=== PATIENT | female | born 1965 | race Caucasian/White ===

== ENCOUNTER 2021-04-20 16:23 | Inpatient (IN) | payer BC ==
[~2021-04-20] VITALS: Ht 170.2 cm; Wt 89.4 kg
[~2021-04-20 16:23] MED LIST: CIPROFLOXACIN500 M1 PO; DOXYCYCLINE 10100 MG PO; LISINOPRIL10 MG PO; PYRIDIUM200 MG PO; VICOPROFEN 2001 EACH PO
[2021-04-20 16:36] VITALS: BP 105/47
[2021-04-20] MEDS ORDERED: ZESTORETIC 10-1 EACH PO (16:38)
[2021-04-20 17:12] LABS: ABSOLUTE LYMPHOCYTES 0.9 thou/uL (0.8-5.3); ABSOLUTE MONOCYTES 0.5 thou/uL (0.0-1.2); ABSOLUTE NEUTROPHILS 5.7 thou/uL (1.6-8.1); BASOPHILS 0.5 %; EOSINOPHILS 0.1 %; HEMATOCRIT 39.2 % (37.0-47.0); HEMOGLOBIN 13.8 gm/dL (12.0-15.0); LYMPHOCYTES 12.7 %; MCH 29.6 pg (26.0-34.0); MCHC 35.1 g/dL (28.0-37.0); MCV 84.3 fL (80.0-100.0); MONOCYTES 7.5 %; MPV 7.5 fl. (7.2-11.1); NUCLEATED RBCS 0 /100WBC; PLATELET COUNT* 352 thou/uL (150-400); POLYS 79.2 %; RBC 4.66 mil/uL (4.20-5.00); RDW-CV 13.6 % (10.5-14.5); WBC 7.1 thou/uL (4.0-11.0)
[2021-04-20 17:18] LABS: BE 1.6 mmol/L (-2 to +3); PCO2 VENOUS 37.6 mmHg (41.0-51.0); PO2 VENOUS 41.8 mmHg (35.0-45.0)
[2021-04-20 17:23] LABS: CALCIUM 8.6 mg/dL (8.5-10.1); CREATININE 1.9 mg/dL (0.6-1.3); POTASSIUM 3.7 mmol/L (3.5-5.1)
[2021-04-20 17:34] LABS: ALBUMIN 2.5 g/dL (3.4-5.0); TOTAL BILIRUBIN 0.4 mg/dL (<0.1-1.0); TOTAL PROTEIN 7.6 g/dL (6.4-8.2)
[2021-04-20 20:49] VITALS: BP 105/54
[2021-04-20 22:07] VITALS: BP 121/76
[2021-04-20] MEDS ORDERED: LISINOPRIL10 MG PO (22:24)
[2021-04-20] MEDS ORDERED: HYDROCHLOROTHIA25 M1 PO (22:25)
[2021-04-21] VITALS (8 sets, daily range): BP systolic 125–157; BP diastolic 64–85
--- NOTE | 2021-04-21 01:39 | NUR ---
ASSUMED CARE OF PT AT 2114. PT IS ALERT AND ORIENTED. VSS. PERRLA. PT IS ON 2 LITERS O2. PT IS HAVING DIARRHEA. PT IS IN SINUS RYTHM ON THE TELEMETRY. PT IS RESTING COMFORTABLY IN BED. RESPIRATIONS ARE EVEN AND NONLABORED. WILL CONTINUE TO MONITOR PT.
--- NOTE | 2021-04-21 10:00 | EKG ---
[place] [address] ELECTROCARDIOGRAM REPORT Name: MAGNO MARAVILLA AYE Room: [address] ADM IN .R.#: [id number] Admission: 04/20/21 Attend Phys: Joseph Bernal Discharge: Date of : 63 Date of Service: 04/20/21 1643 Report #: [id number] THIS REPORT FOR: //name// [facility] ED Test Date: 2021-04-20 Test Time: 16:43:21 Pat Name: MAGNO MARAVILLA Department: Room: [facility] Gender: F [employer] Operator: ELIZABETH : 1965 Requested By: Ana Bermeo Order Number: [id number] MD: Sixto Nguyen Measurements Intervals [place] Rate: 114 P: 57 SC: 149 QRS: 80 QRSD: 101 T: 24 QT: 331 QTc: 456 Interpretive Statements Sinus tachycardia nonspecific st segment changes No previous ECG available for comparison Electronically Signed On 04-21-2021 9:59:59 CDT by Sixto Nguyen [email or web address] <ELECTRONICALLY SIGNED> By: Sixto Nguyen MD, [facility] 04/21/2159 1643 42 Sixto Nguyen MD, [facility] /EPI
[2021-04-21 10:57] LABS: APTT 23.8 Seconds (25.0-31.3); PROTIME 10.9 Seconds (9.20-11.50)
--- NOTE | 2021-04-21 17:19 | NUR ---
CM ATTEMPTED TO CONTACT PT VIA ROOM PHONE AND CELL PHONE D/T COVID ENHANCED ISOLATION PROTOCOL. CM ALSO TRY TO CONTACT PT SPOUSE AND NEXT TO KIN, DAYANNA BUT THERE WERE NO ANSWER FROM EITHER [employer]. CM TO FOLLOW UP AT LATER DATE.
--- NOTE | 2021-04-21 19:53 | NUR ---
I ASSUMED CARE OF THE PATIENT AT 0700. SHE IS ALERT AND ORIENTED X4 AND IS UP SBA TO THE RESTROOM. BED IS IN THE LOW LOCKED POSITION AND CALL LIGHT IS IN REACH. HOURLY ROUNDING IS COMPLETED AND PATIENT NEEDS ARE MET. PAIN IS DENIED. OXYGEN IS MAINTAINED. ISOLAION IS MAINTAINED. BLOOD GLUCOSE IS MONITORED.
--- NOTE | 2021-04-22 00:27 | NUR ---
ASSUMED CARE OF PT AT 1900. PT IS ALERT AND ORIENTED. VSS. PERRLA. NO COMPLAINTS OF PAIN.PT IS ON 2 LITERS O2. PT IS SINUS RYTHM WITH A PROLONGED SC INTERVAL. PT IS SLEEPING QUIETLY IN BED. RESPIRATIONS ARE EVEN AND NONLABORED. WILL CONTINUE TO MONITOR PT.
[2021-04-22 04:34] LABS: HEMATOCRIT 35.2 % (37.0-47.0); HEMOGLOBIN 12.5 gm/dL (12.0-15.0); MCH 29.8 pg (26.0-34.0); MCHC 35.5 g/dL (28.0-37.0); MPV 7.1 fl. (7.2-11.1); RBC 4.19 mil/uL (4.20-5.00); RDW-CV 13.4 % (10.5-14.5); WBC 5.2 thou/uL (4.0-11.0)
[2021-04-22 04:51] LABS: CALCIUM 8.1 mg/dL (8.5-10.1); POTASSIUM 3.6 mmol/L (3.5-5.1)
[2021-04-22 05:21] VITALS: BP 150/76
--- NOTE | 2021-04-22 07:25 | NUR ---
CHANGE OF SHIFT BEDSIDE REPOERT GIVEN PATIENT SEEN AT BEDSIDE, IN BED RESTING ASSUMED PATIENT CARE
[2021-04-22 08:28] VITALS: BP 142/77
[2021-04-22 12:00] VITALS: BP 153/84
[2021-04-22 13:12] LABS: ALBUMIN 2.3 g/dL (3.4-5.0); DIRECT BILIRUBIN 0.1 mg/dL (<0.1-0.3); MAGNESIUM 2.3 mg/dL (1.8-2.4); TOTAL BILIRUBIN 0.3 mg/dL (<0.1-1.0); TOTAL PROTEIN 6.8 g/dL (6.4-8.2)
--- NOTE | 2021-04-22 15:44 | NUR ---
CM ASSESSMENT: PT COVID POSITIVE AND CURRENTLY UNDER ENHANCED PRECAUTIONS. PT A&O, INDPENDENT WITH ADL'S, ACTIVE AND WORKS OUTSIDE THE HOME. PT USES 0 DME. PT HAS 0 HX OF HH OR SNF. CM D/C PLANNING NEEDS TBD AT THIS TIME. CM WILL REMAIN AVAILABLE TO ASSIST AND FOLLOW NEEDED.
[2021-04-22 16:00] VITALS: BP 150/76
[2021-04-22 20:00] VITALS: BP 148/72
[2021-04-23 01:48] VITALS: BP 169/93
--- NOTE | 2021-04-23 04:44 | NUR ---
ASSUMED PT CARE AT APPROX. 1930. PT IS A/OX4. VSS. PT IS ON 2L NC. 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 PT IS COVID + AND IS IN ISOLATION/ENHANCED PRECAUTIONS. PT RESTED DURING THE NOC. NO C/O VOICED. PT IS INDEPENDENT IN ROOM. FALL PRECAUTIONS IN PLACE FOR SAFETY. HOURLY ROUNDS COMPLETE CHARTED. ASSESSMENTS COMPLETED. NO ACUTE CHANGES THIS SHIFT. CALL LIGHT WITHIN REACH. PT CURRENTLY RESTING IN BED. WILL CONT. TO MONITOR.
[2021-04-23 05:01] VITALS: BP 176/86
[2021-04-23 05:15] LABS: ABSOLUTE LYMPHOCYTES 1.1 thou/uL (0.8-5.3); ABSOLUTE MONOCYTES 0.7 thou/uL (0.0-1.2); BASOPHILS 0.1 %; EOSINOPHILS 0.3 %; HEMATOCRIT 33.8 % (37.0-47.0); MCH 29.8 pg (26.0-34.0); MCHC 35.5 g/dL (28.0-37.0); MCV 83.8 fL (80.0-100.0); MONOCYTES 12.3 %; MPV 6.7 fl. (7.2-11.1); NUCLEATED RBCS 0 /100WBC; PLATELET COUNT* 454 thou/uL (150-400); POLYS 68.3 %; RBC 4.03 mil/uL (4.20-5.00); RDW-CV 13.1 % (10.5-14.5); WBC 5.9 thou/uL (4.0-11.0)
[2021-04-23 05:34] LABS: LIPASE 677 U/L (73-393); TRIGLYCERIDE 151 mg/dL (<150)
[2021-04-23 05:35] LABS: CALCIUM 8.3 mg/dL (8.5-10.1); CREATININE 1.2 mg/dL (0.6-1.3); POTASSIUM 3.4 mmol/L (3.5-5.1)
[2021-04-23 08:15] VITALS: BP 149/85
--- NOTE | 2021-04-23 11:44 | CON ---
[address] [address] CONSULTATION Name: MAGNO MARAVILLA Room: [address] IN .R.#: [id number] Admission: 04/20/21 Attend Phys: Germaine Huerta Discharge: Date of : 63 Report #: [id number] THIS REPORT FOR: cc: Fco George MD Honeycutt, Jamie Sue, MD Pervez,Marcos MANZO ~ DOC #: [id number] Marcos Cabrera MD DATE OF CONSULTATION: 04/22/2021 REQUESTING PHYSICIAN: Girish Velázquez MD INDICATION FOR CONSULTATION: COVID-19/pulmonary infiltrates. HISTORY OF PRESENT ILLNESS: This is a 55-year-old female, past medical history is as mentioned below. The patient does not have a previous history of cardiac or respiratory disease. She has, however, had hypertension and says that when she was a child, she used to take Tylenol in large amounts regularly, which led to damage to her liver. Now, the patient has been admitted with COVID-19. She has not been vaccinated for COVID. She reports that her was tested positive for COVID-19 about 14 days ago and she herself has had symptoms for at least 10 days prior to admission. She had high-grade fever. She had chills. She had dehydration as a result had diarrhea as well. She was having severe nausea and intermittently had vomiting, which led to her not being able to take much orally. She was not having abdominal pain at the time of admission. The patient was found to be in acute renal failure on initial presentation. Her creatinine was 1.9, note that her baseline creatinine is normal. She also had marked elevation in lipase levels to 966. Her liver function enzymes were, however, essentially normal with the exception of a decreased albumin and minimal elevation around 65 on the AST. The patient also does report that she has had shortness of breath. She has also been coughing. She brings up small amounts of white or clear sputum. She does not have chest pain. At this time, she is not having nasal discharge or sore throat. She has some swelling of lower extremities, which she attributes to varicose veins which has been treated in the past. This has not changed recently. She is not having calf pain. She answers to the negative for 12 questions to review of systems except as mentioned above. Since admission, the patient has been treated with Decadron. She has also been on broad spectrum antibiotics and she has been fluid resuscitated. Initially, she was saturating 88% on room air. She has since then been on oxygen, [place] [address] CONSULTATION Name: MAGNO MARAVILLA AYE Room: [address] IN M.R.#: [id number] Admission: 04/20/21 Attend Phys: Germaine Huerta Discharge: Date of : 63 Report #: [id number] maintaining O2 saturation in the low 90s on 1-2 liters oxygen via nasal cannula. PAST MEDICAL HISTORY: The patient states that she had been consuming large amounts of Tylenol as a child, which she was told led to liver injury. Varicose veins has had bilateral treatments on legs for varicose veins. Thyroid mass, status post surgery. Disk surgery at L4-L5 level. Breast implants with subsequent surgery for repair due to leaking. Precancerous cells in the cervix, requiring LEEP procedure, tubal ligation, hypertension. SOCIAL HISTORY: No known history of smoking, ethanol abuse or drug abuse. CURRENT MEDICATIONS: The list is in [employer] reviewed. HOME MEDICATIONS: List also in [employer] reviewed. ALLERGIES: SHE IS REPORTED TO HAVE HAD LIVER INJURY FROM TYLENOL. I DO NOT HAVE DETAILS AVAILABLE. IT APPEARS LIKELY THIS WAS DUE TO EXCESSIVE CONSUMPTION AND NOT A TRUE ALLERGY. SHE IS REPORTED TO HAVE HAD RASH WITH PENICILLINS; however, she tolerates cephalosporins without problems. ALSO, HAS HAD SWELLING WITH SULFONAMIDE ANTIBIOTICS AND HAS A RASH WITH LATEX. FAMILY HISTORY: has COVID-19. PHYSICAL EXAMINATION: GENERAL: She is alert, awake and oriented, does not appear to be in any distress at this time. VITAL SIGNS: Has a pulse of 97 and a blood pressure of 150/76. She is saturating 95% on 1 liter nasal cannula, afebrile with a temperature of 36.7, respiratory rate 18. Body mass index is elevated to 31. HEENT: Normocephalic and atraumatic. Pupils are equal and reactive. There is no throat erythema. NECK: Does not show raised JVP, asymmetry, mass or lymph nodes. CHEST: Symmetrical expansion on inspection and palpation. On auscultation, there are rales at bilateral lung bases, more at the left lung base than the right. HEART: Regular. There is no murmur. ABDOMEN: Soft and nontender. EXTREMITIES: Lower extremities show no edema, no calf tenderness. EXTREMITIES: Lower extremities; trace edema, no calf tenderness. There are some small varicose veins noted. SKIN: Dry and intact. NEUROLOGIC: Moves all extremities bilaterally equally and spontaneously with [place] [address] CONSULTATION Name: MAGNO MARAVILLA Room: [facility] IN [facility]#: [id number] Admission: 04/20/21 Attend Phys: Germaine Huerta Discharge: Date of : 63 Report #: [id number] LABORATORY DATA: The patient's chest x-rays do show bilateral infiltrates consistent with COVID-19 and secondary bacterial pneumonia. The patient's CT of the abdomen and pelvis performed yesterday also in [facility] reviewed, does not show any urinary tract obstruction. There are changes consistent with severe fatty liver. Lab work in [facility] reviewed. Creatinine has now returned to normal. ASSESSMENT AND PLAN: 1. COVID-19. Primarily, I will treat this with dexamethasone at 6 mg daily unless her respiratory status worsens. The patient is already on dexamethasone, we will continue. Considering that her lipase is still elevated and she has a history of severe fatty liver disease and she had acute renal failure initially, for now I decided to hold off on remdesivir; however, this will be a consideration in case she declines. Also, we will hold off on Actemra and convalescent plasma for now. 2. Pulmonary infiltrates. It does appear that the patient has a secondary bacterial infection. We will continue with Zithromax and ceftriaxone. We will try to obtain a sputum culture. I did increase the dose of ceftriaxone and changed Zithromax to p.o. 3. Acute pancreatitis. Lipase was elevated initially. I repeated labs yesterday, it is trending downwards. It appears that pancreatic inflammation is not sufficient to cause changes to be visible on CT of the abdomen and pelvis. We will continue to follow lipase. 4. Acute renal failure, which has resolved/mild fluid overload. She has appropriately been fluid resuscitated. Creatinine has now returned to normal. At this time, she appears to be mildly fluid overloaded. Considering that her potassium is 3.6 and since then she has received one dose of hydrochlorothiazide rather than giving her Lasix and ordered a dose of Aldactone, so that her potassium was also brought up. We will reassess tomorrow. 5. Evaluation for thromboembolic phenomena/history of varicose veins. We will also do venous Dopplers. 6. Deep venous thrombosis prophylaxis. We will start intermediate dose Lovenox. 7. Clostridium difficile prophylaxis, Lactinex. Thanks for this consultation. Marcos Cabrera MD /[place] [address] CONSULTATION Name: MAGNO MARAVILLA AYE Room: [address] IN [facility].#: [id number] Admission: 04/20/21 Attend Phys: Germaine Huerta Discharge: Date of : 63 Report #: [id number] <ELECTRONICALLY SIGNED> By: Marcos Cabrera MD 04/23/21 1144 [id number] [id number] Cabrera MD /elizabeth
[2021-04-23 13:07] VITALS: BP 112/73
--- NOTE | 2021-04-23 13:57 | NUR ---
PLAN OF CARE: PHYSICIAN INFORMS OF PLAN TO POSSIBLY D/C THE PT HOME IN 1-2 MORE DAYS. PT MAY NEED HOME OXYGEN AT D/C PENDING R.T. REST AND EXERCISE TESTING. NO OTHER CM D/C PLANNING NEEDS ANTICIPATED. CM WILL REMAIN AVAILABLE TO ASSIST AND FOLLOW NEEDED.
[2021-04-23 17:29] VITALS: BP 110/86
[2021-04-23 20:00] VITALS: BP 163/64
[2021-04-24 04:00] VITALS: BP 158/64
--- NOTE | 2021-04-24 04:49 | NUR ---
ASSUMED PT CARE AT APPROX 1930. PT IS AWAKE AND ORIENTED X4. PT IS NOT IN DISTRESS, NO DESATURATIONS NOTED. PT DENIES PAIN/ DISCOMFORT NO ACUTE CHANGES THIS SHIFT. CALL LIGHT WITHIN REACH. HOURLY ROUNDING DONE FOR PT SAFETY.
[2021-04-24] MEDS ORDERED: DEXAMETHASONE1 MG PO (07:53)
[2021-04-24] MEDS ORDERED: DOXYCYCLINE 10100 MG PO (07:53)
[2021-04-24] MEDS ORDERED: PROTONIX40 M2 PO (07:53)
[2021-04-24 08:00] VITALS: BP 122/70
[2021-04-24 08:33] LABS: ABSOLUTE LYMPHOCYTES 1.8 thou/uL (0.8-5.3); ABSOLUTE MONOCYTES 0.7 thou/uL (0.0-1.2); BASOPHILS 0.3 %; EOSINOPHILS 0.5 %; HEMATOCRIT 35.2 % (37.0-47.0); HEMOGLOBIN 12.6 gm/dL (12.0-15.0); LYMPHOCYTES 26.9 %; MCH 29.6 pg (26.0-34.0); MCHC 35.9 g/dL (28.0-37.0); MCV 82.5 fL (80.0-100.0); MONOCYTES 11.4 %; MPV 6.9 fl. (7.2-11.1); NUCLEATED RBCS 0 /100WBC; PLATELET COUNT* 499 thou/uL (150-400); POLYS 60.9 %; RBC 4.27 mil/uL (4.20-5.00); RDW-CV 13.3 % (10.5-14.5); WBC 6.6 thou/uL (4.0-11.0)
[2021-04-24 08:53] LABS: ALBUMIN 2.6 g/dL (3.4-5.0); CALCIUM 8.6 mg/dL (8.5-10.1); POTASSIUM 3.9 mmol/L (3.5-5.1); TOTAL BILIRUBIN 0.4 mg/dL (<0.1-1.0)
[2021-04-24 15:35] VITALS: BP 162/58
[2021-04-24 16:22] VITALS: BP 162/58
== END 2021-04-24 17:13 | disposition home or self-care (01) | DRG 177 ==
LOC: M.ERS 16:23 → M.TBA-ER 18:01 → M.2W 18:01
PROVIDERS: Internal Medicine; Internal Medicine Critical Care Medicine; Nurse Practitioner Family; ADMIT Internal Medicine; ATTEND Internal Medicine
DX: U07.1 COVID-19 (principal); J96.01 Acute respiratory failure with hypoxia; K85.90 Acute pancreatitis without necrosis or infection, unspecified; J12.82 Pneumonia due to coronavirus disease 2019; N17.0 Acute kidney failure with tubular necrosis; I10 Essential (primary) hypertension; E86.0 Dehydration; K76.0 Fatty (change of) liver, not elsewhere classified; N28.1 Cyst of kidney, acquired; Z88.0 Allergy status to penicillin; Z88.2 Allergy status to sulfonamides; Z88.8 Allergy status to other drugs, medicaments and biological substances; Z91.040 Latex allergy status

== ENCOUNTER → 2021-05-24 | Outpatient (CLI) | payer BC ==
[~2021-05-24] MED LIST changes: +DEXAMETHASONE1 MG PO; +HYDROCHLOROTHIA25 M1 PO; +PROTONIX40 M2 PO; +ZESTORETIC 10-1 EACH PO
[2021-05-24 15:55] LABS: ALBUMIN 4.3 g/dL (3.4-5.0); CALCIUM 8.8 mg/dL (8.5-10.1); CREATININE 1.2 mg/dL (0.6-1.3); POTASSIUM 3.6 mmol/L (3.5-5.1); TOTAL BILIRUBIN 0.4 mg/dL (<0.1-1.0); TOTAL PROTEIN 8.1 g/dL (6.4-8.2)
== END ==
LOC: M.LAB 15:06
PROVIDERS: ATTEND Nurse Practitioner Family
DX: R79.89 Other specified abnormal findings of blood chemistry (principal)

== ENCOUNTER → 2021-05-27 | Outpatient (CLI) | payer BC | LOC: M.ULTRA 05-26 09:30 | PROVIDERS: ATTEND Nurse Practitioner Family | DX: K76.0 Fatty (change of) liver, not elsewhere classified (principal); R79.89 Other specified abnormal findings of blood chemistry ==